=== PATIENT | male | born 1930 | race Caucasian/White ===

== ENCOUNTER 2016-09-16 08:00 | Outpatient (CLI) | payer MEDICARE, OTHER ==
[2016-09-16 13:20] LABS: BASOPHILS % (AUTO) 0.8 %; EOSINOPHILS # (AUTO) 0.1 10^3/uL (0.0-0.7); EOSINOPHILS % (AUTO) 2.1 %; HCT - HEMATOCRIT 31.9 % (42.0-52.0); HGB - HEMOGLOBIN 10.5 g/dL (14.0-18.0); LYMPHOCYTES # (AUTO) 0.6 10^3/uL (1.5-3.5); LYMPHOCYTES % (AUTO) 12.1 %; MEAN CORPUSCULAR HEMOGLOBIN 29.7 pg (27.0-31.0); MEAN CORPUSCULAR HGB CONC 33.1 g/dL (32.0-36.0); MEAN CORPUSCULAR VOLUME 89.7 fL (80.0-94.0); MONOCYTES # (AUTO) 0.6 10^3/uL (0.0-1.0); MONOCYTES % (AUTO) 12.3 %; NEUTROPHILS # (AUTO) 3.6 10^3/uL (1.5-6.6); NEUTROPHILS % (AUTO) 72.7 %; RED BLOOD COUNT 3.55 10^6/uL (4.70-6.10); RED CELL DISTRIBUTION WIDTH 15.5 % (12.0-15.0); UNCORRECTED WHITE BLOOD COUNT 4.9 x10^3/uL; WHITE BLOOD COUNT 4.9 x10^3/uL (4.8-10.8)
== END 2016-09-16 23:59 ==
LOC: LAB.R 08:00
PROVIDERS: ATTEND Internal Medicine
DX: D50.9 Iron deficiency anemia, unspecified (principal)
CPT/HCPCS: 82728; 85025

== ENCOUNTER 2016-10-01 08:59 | Outpatient (CLI) | payer MEDICARE, OTHER | END 2016-10-01 09:00 | disposition home or self-care (01) | DX: D50.9 Iron deficiency anemia, unspecified (principal) ==

== ENCOUNTER 2016-10-22 10:30 | Outpatient (CLI) | payer MEDICARE, OTHER ==
[2016-10-22 15:18] LABS: ALBUMIN/GLOBULIN RATIO 1.6 (1.0-2.2); BILIRUBIN,TOTAL < 0.2 mg/dL (0.2-1.0); BUN - BLOOD UREA NITROGEN 15 mg/dL (6-20); CALCIUM 8.8 mg/dL (8.5-10.3); CARBON DIOXIDE - CO2 26 mmol/L (21-32); CHLORIDE 99 mmol/L (101-111); CREATININE 0.9 mg/dL (0.6-1.2); GFR - MDRD 80 (>89); GLUCOSE 124 mg/dL (70-100); SODIUM 133 mmol/L (135-145); TOTAL PROTEIN 6.2 g/dL (6.7-8.2)
[2016-10-22 15:29] LABS: BASOPHILS % (AUTO) 0.9 %; EOSINOPHILS % (AUTO) 0.9 %; HGB - HEMOGLOBIN 8.5 g/dL (14.0-18.0); LYMPHOCYTES # (AUTO) 0.4 10^3/uL (1.5-3.5); LYMPHOCYTES % (AUTO) 9.8 %; MEAN CORPUSCULAR HEMOGLOBIN 27.8 pg (27.0-31.0); MEAN CORPUSCULAR HGB CONC 31.7 g/dL (32.0-36.0); MEAN CORPUSCULAR VOLUME 87.6 fL (80.0-94.0); MEAN PLATELET VOLUME 7.7 fL (7.4-11.4); MONOCYTES # (AUTO) 0.5 10^3/uL (0.0-1.0); NEUTROPHILS # (AUTO) 2.9 10^3/uL (1.5-6.6); NEUTROPHILS % (AUTO) 76.4 %; NUCLEATED RED BLOOD CELLS AUTO 0.1 /100WBC; RED BLOOD COUNT 3.08 10^6/uL (4.70-6.10); RED CELL DISTRIBUTION WIDTH 16.5 % (12.0-15.0); UNCORRECTED WHITE BLOOD COUNT 3.7 x10^3/uL; WHITE BLOOD COUNT 3.7 x10^3/uL (4.8-10.8)
== END 2016-10-22 10:31 | disposition home or self-care (01) ==
LOC: LAB.R 10:30
PROVIDERS: ATTEND Internal Medicine
DX: D64.9 Anemia, unspecified (principal); R53.83 Other fatigue
CPT/HCPCS: 80053; 82728; 85025

== ENCOUNTER 2016-11-04 09:35 | Outpatient (CLI) | payer MEDICARE, OTHER ==
[2016-11-04 09:54] LABS: BASOPHILS % (AUTO) 0.8 %; HCT - HEMATOCRIT 25.6 % (42.0-52.0); HGB - HEMOGLOBIN 8.1 g/dL (14.0-18.0); LYMPHOCYTES # (AUTO) 0.5 10^3/uL (1.5-3.5); LYMPHOCYTES % (AUTO) 11.1 %; MEAN CORPUSCULAR HEMOGLOBIN 26.2 pg (27.0-31.0); MEAN CORPUSCULAR HGB CONC 31.5 g/dL (32.0-36.0); MEAN CORPUSCULAR VOLUME 83.4 fL (80.0-94.0); MEAN PLATELET VOLUME 6.5 fL (7.4-11.4); MONOCYTES # (AUTO) 0.6 10^3/uL (0.0-1.0); MONOCYTES % (AUTO) 13.4 %; NEUTROPHILS # (AUTO) 3.3 10^3/uL (1.5-6.6); NEUTROPHILS % (AUTO) 73.7 %; RED BLOOD COUNT 3.07 10^6/uL (4.70-6.10); RED CELL DISTRIBUTION WIDTH 18.7 % (12.0-15.0); UNCORRECTED WHITE BLOOD COUNT 4.4 x10^3/uL; WHITE BLOOD COUNT 4.4 x10^3/uL (4.8-10.8)
== END 2016-11-04 09:36 | disposition home or self-care (01) ==
LOC: LAB 09:35
PROVIDERS: ATTEND Internal Medicine
DX: D64.9 Anemia, unspecified (principal)
CPT/HCPCS: 36415; 85025

== ENCOUNTER 2016-11-10 11:09 | Outpatient (CLI) | payer MEDICARE, OTHER ==
[2016-11-10 11:35] LABS: BASOPHILS # (AUTO) 0.1 10^3/uL (0.0-0.1); BASOPHILS % (AUTO) 0.9 %; EOSINOPHILS % (AUTO) 0.7 %; HCT - HEMATOCRIT 26.2 % (42.0-52.0); HGB - HEMOGLOBIN 8.4 g/dL (14.0-18.0); LYMPHOCYTES # (AUTO) 0.5 10^3/uL (1.5-3.5); LYMPHOCYTES % (AUTO) 9.4 %; MEAN CORPUSCULAR HEMOGLOBIN 26.5 pg (27.0-31.0); MEAN CORPUSCULAR VOLUME 82.7 fL (80.0-94.0); MEAN PLATELET VOLUME 6.5 fL (7.4-11.4); MONOCYTES # (AUTO) 0.7 10^3/uL (0.0-1.0); MONOCYTES % (AUTO) 11.4 %; NEUTROPHILS # (AUTO) 4.4 10^3/uL (1.5-6.6); NEUTROPHILS % (AUTO) 77.6 %; NUCLEATED RED BLOOD CELLS AUTO 0.1 /100WBC; RED BLOOD COUNT 3.17 10^6/uL (4.70-6.10); RED CELL DISTRIBUTION WIDTH 17.9 % (12.0-15.0); UNCORRECTED WHITE BLOOD COUNT 5.7 x10^3/uL; WHITE BLOOD COUNT 5.7 x10^3/uL (4.8-10.8)
[2016-11-10 11:49] LABS: PLATELET ESTIMATE, MANUAL NORMAL (130-450,000) (NORMAL); PLATELET MORPHOLOGY NORMAL APPEARANCE (NORMAL)
[2016-11-10 11:50] LABS: ALBUMIN/GLOBULIN RATIO 1.4 (1.0-2.2); BILIRUBIN,TOTAL 0.4 mg/dL (0.2-1.0); CALCIUM 8.7 mg/dL (8.5-10.3); CREATININE 0.8 mg/dL (0.6-1.2); POTASSIUM 4.4 mmol/L (3.5-5.0); TOTAL PROTEIN 6.3 g/dL (6.7-8.2)
--- NOTE | 2016-11-10 21:45 | CT Report ---
CT CHEST WITH CONTRAST: 11/10/2016 CLINICAL INDICATION: Colon cancer. Axial CT images of the chest were obtained with 100 mL Isovue-300 intravenously. In accordance with CT protocol optimization, one or more of the following dose reduction techniques w ere utilized for this exam: automated exposure control, adjustment of mA and/or KV based on patient size, or use of iterative reconstructive technique. No previous CT is available for comparison. The heart and great vessels demonstrate atherosclerotic calcifications. No hilar or mediastinal lymp hadenopathy is present. A small hiatal hernia is noted. The lungs demonstrate minimal dependent ate lectasis. No pulmonary nodule or mass lesion is seen. No effusion or pneumothorax is present. Osse ous structures demonstrate degenerative changes. IMPRESSION: NO EVIDENCE OF THORACIC METASTATIC DISEASE. JOB #: [id number] EXT JOB #:[id number]
--- NOTE | 2016-11-10 21:56 | CT Report ---
CT ABDOMEN AND PELVIS WITH CONTRAST: 11/10/2016 CLINICAL INDICATION: Colon cancer staging. Axial CT images of the abdomen and pelvis were obtained with 100 mL Isovue-300 intravenously as well as oral contrast. In accordance with CT protocol optimization, one or more of the following dose reduction techniques w ere utilized for this exam: automated exposure control, adjustment of mA and/or KV based on patient size, or use of iterative reconstructive technique. No previous CT is available for comparison. Please refer to separate chest CT of the same day. ABDOMEN: There are several hypodense lesions in the liver, measuring from 9 mm to 3.5 cm, compatible with hepatic metastatic disease. The gallbladder is not dilated. The spleen, pancreas, and adrenal glands are unremarkable. The kidneys demonstrate cortical cysts. No bowel dilatation, free gas, or free fluid is present. No abdominal adenopathy is appreciated. PELVIS: The mass in the ascending colon is seen. There are pericolonic lymph nodes present, likely representing marcial metastases. Sigmoid diverticulosis is seen, without CT evidence of diverticulitis . No pelvic free fluid or pelvic side wall adenopathy is appreciated. Osseous structures demonstrate degenerative changes. IMPRESSION: PERICOLONIC LYMPH NODES, LIKELY REPRESENTING MARCIAL METASTASES, WELL MULTIPLE HYPOD ENSE LESIONS IN THE LIVER, MEASURING UP TO 3.5 CM, COMPATIBLE WITH HEPATIC METASTASES. JOB #: [id number] EXT JOB #:[id number]
== END 2016-11-10 11:10 | disposition home or self-care (01) ==
LOC: DI 11:09
PROVIDERS: ATTEND Surgery
DX: C18.9 Malignant neoplasm of colon, unspecified (principal); K76.9 Liver disease, unspecified
CPT/HCPCS: 36415; 71260; 74177; 80053; 82378; 84134; 85025

== ENCOUNTER 2016-11-25 08:56 | Outpatient (CLI) | payer MEDICARE, OTHER ==
[2016-11-25 19:38] LABS: BASOPHILS # (AUTO) 0.1 10^3/uL (0.0-0.1); BASOPHILS % (AUTO) 1.3 %; EOSINOPHILS # (AUTO) 0.1 10^3/uL (0.0-0.7); EOSINOPHILS % (AUTO) 1.5 %; HCT - HEMATOCRIT 35.2 % (42.0-52.0); HGB - HEMOGLOBIN 10.8 g/dL (14.0-18.0); LYMPHOCYTES # (AUTO) 0.6 10^3/uL (1.5-3.5); LYMPHOCYTES % (AUTO) 11.5 %; MEAN CORPUSCULAR HEMOGLOBIN 27.1 pg (27.0-31.0); MEAN CORPUSCULAR HGB CONC 30.8 g/dL (32.0-36.0); MEAN CORPUSCULAR VOLUME 88.2 fL (80.0-94.0); MEAN PLATELET VOLUME 8.2 fL (7.4-11.4); MONOCYTES # (AUTO) 0.6 10^3/uL (0.0-1.0); MONOCYTES % (AUTO) 11.5 %; NEUTROPHILS # (AUTO) 3.8 10^3/uL (1.5-6.6); NEUTROPHILS % (AUTO) 74.2 %; NUCLEATED RED BLOOD CELLS AUTO 0.1 /100WBC; RED BLOOD COUNT 3.99 10^6/uL (4.70-6.10); UNCORRECTED WHITE BLOOD COUNT 5.1 x10^3/uL; WHITE BLOOD COUNT 5.1 x10^3/uL (4.8-10.8)
== END 2016-11-25 08:57 | disposition home or self-care (01) ==
LOC: LAB.R 08:56
PROVIDERS: ATTEND Internal Medicine
DX: C18.9 Malignant neoplasm of colon, unspecified (principal)
CPT/HCPCS: 85025

== ENCOUNTER 2016-12-16 14:20 | Outpatient (CLI) | payer MEDICARE, OTHER ==
--- NOTE | 2016-12-16 22:43 | CONSULTATION NOTE ---
Palliative Care Consultation - Referral Referring Provider: Dr. 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 He presents today with his daughter Naomie to discuss goals of care regarding his ambiguity about proceeding on with treatment. He has a history of recurrent polyps, with his last colonoscopy in 01/2014 with 6 polyps that were tubular adenomas. He was being worked up for anemia which included upper endoscopy and found to have H. Pylori, and was treated in 06/1016. After continued labs showed anemia with low hct 24-25 he did have a colonoscopy 11/06 to find an ulcerated nonobstructive mass in the ascending colon with biopsy showing a moderately differentiated adenocarcinoma. In staging work up on CT scan was shown to have liver lesions between 9 mm and 3.5 cm bilobar. His CEA on 11/10 was 24.2. He was symptomatic from his anemia and received an iron transfusion about 3 weeks ago, and feels much better. He was experiencing severe fatigue, shortness of breath, poor activity tolerance and had exacerbated his anxiety. Patient at baseline is very functional, and was worried about maintaining his independence. He was seen at [facility], [facility] by Dr. Linn, as well as two surgeons. His understanding is that he is not a surgical candidate with metastatic disease, and does have some palliative options with chemotherapy. Medical/Surgical History - Past Medical History Cardiovascular: reports: Hypertension Respiratory: reports: None Neuro: reports: Headache/migraine Endocrine/Autoimmune: reports: None GI: reports: GI bleed (from tumor), Colon polyps. denies: Chronic constipation : reports: None HEENT: reports: Chronic vision loss, Chronic hearing loss Psych: reports: Anxiety Musculoskeletal: reports: Osteoarthritis (long standing anxiety) Derm: reports: None MRSA Hx?: No - Past Surgical History General: reports: Appendectomy, Colonoscopy Ortho: reports: Arthroscopic surgery HEENT: reports: Cataracts - Substance History Use: Uses substance without health or social issues: Alcohol (repoorts drinks moderately) Social History - Living Situation Living arrangement: At home Living Situation: Alone Support System: Daughter Naomie and her family live in [place], she has been very much supportive and involve in his care. She has two high schoolers so is feeling some pull. His son lives in the [place], was just home for a visit. His of lung cancer about 7 1/2 years ago, this very much impacts how he is thinking about his future. Family History - Family History Family History: Mother: (father at 86 with "stomach bleed"), Alzheimer' s Disease (83), Father: , Sister: , Cancer (ovarian) Medications/Allergies - Medications Home Medications: Ambulatory Orders Medication Instructions Recorded Confirmed Ferrous Sulfate 325 mg PO DAILY 11/12/16 12/17/16 Losartan Potassium 100 mg PO DAILY PM 11/12/16 12/17/16 Ascorbic Acid [Vitamin C] 500 mg PO DAILY 12/17/16 12/17/16 LORazepam [Ativan] 0.25 - 0.5 mg PO Q6HR PRN 12/17/16 12/17/16 - Allergies Allergies/Adverse Reactions: Allergies Allergy/AdvReac Type Severity Reaction Status Date / Time No Known Drug Allergies Allergy Verified 11/12/16 10:40 Review of Systems - Constitutional Constitutional: reports: Fatigue. denies: Diaphoresis, Night sweats, Weight loss - Eyes Eyes: reports: Vision loss, Corrective lenses - Ears, Nose & Throat Ears, Nose & Throat: reports: Hearing loss, Hearing aids - Cardiovascular Cariovascular: reports: Decr. exercise tolerance. denies: Chest pain - Respiratory Respiratory: reports: SOB with exertion. denies: Cough, SOB at rest - Gastrointestinal Gastrointestinal: reports: Black stools (due to iron). 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 denies: Recurrent infections - All Other Systems All Other Systems: reports: Reviewed and negative Physical Examination - Vital Signs Pulse Rate: 71 Respiratory Rate: 18 Blood Pressure: 141/85 - Physical Exam General Appearance: positive: No acute distress, Alert Eyes Bilateral: positive: Normal inspection ENT: positive: ENT inspection nml Neck: positive: No JVD, Trachea midline Respiratory: positive: Breath sounds nml Cardiovascular: positive: Regular rate & rhythm Abdomen: positive: Non-tender, Nml bowel sounds, No distention Skin: positive: Pallor Extremities: positive: No pedal edema, Other (limited ROM bilat in shoulders) Neurologic/Psychiatric: positive: Oriented x3, Mood/affect nml Palliative Care - POLST Patient has POLST: Yes POLST Status: DNR, Limited Interventions Pain: Pain unchanged, Location (chronic bilat in shoulders with movement), Severity (0/10 toady) Drowsiness: Mild (1-3) (reports continued fatigue, but is still manageable and not as severe) Nausea: None Anxiety: Mild (1-3) Dyspnea: Mild (1-3) Anorexia: None (does report less in portions) Insomnia: Sleeps well Constipation: No Feelings of wellbeing/Perceived Quality of Life: Comment (perceives current quality of life acceptable; wondering about the future rates 2/10 with 0 best well being and 10 worst) Performance Status: Previous level of function prior to this episode [very active, no limitations]. Current level of functioning [still independent, but pacing self, notes more fatigue]. Palliative Care Performance Status [80%]. - Palliative Care Discussion: Surrogate decision maker- Naomie Durham daughter [phone]. Lengthy discussion regarding goals of care. Patient's understanding has serious illness , understands will progress. Has been offered "comfort care/do nothing", what he understood was a "blanket" or something less toxic but still treatment with goal to extend quantity (capecitabine single agent) and more aggressive regimen , which at this time is pretty much "off the table". He is pending genetic markers testing to see if qualifies for targeted regimen is what they understood. He felt so much better after the iron infusion, and has been so anxious about this decision making process, currently is planning to enjoy the summer and make a definitive decision in the fall. His "lens" is colored by his 's experience with lung cancer and her rapid decline. He very much wants to be independent as long as possible, and wondering if can keep treating the anemia, even if chooses not treatment if that will reach his goals. We did talk about the capecitabine, depending on the regimen, can be well tolerated, also if decide to try, can always not continue if feel impactful. Reviewed though in no treatment, cancer will progress with it's own symptomology. Addressed questions regarding advanced directives, completed the POLST, with DNAR/Limited interventions. Currently would accept transfusion, treatment for reversible conditions, but wanting to weigh benefits and burdens as decisions come up with ultimate goal on comfort and quality of life. Results - Lab Results Lab results reviewed: Yes Impression and Recommendations - Palliative Care Impression: This is a usman 86 year old gentleman with colon cancer and metastatic disease to the liver. His performance status is good, no weight loss, low symptom burden but with concerns related anemia secondary to ulcerated tumor. He is struggling with treatment decisions, values his independence, and has good family support but lives alone. Based on his PPS of 80% with not treatment his survival statistics put him between 6-7.5 months. Recommendations/Counseling Done: 1. Metastatic colon cancer. Patient awaiting results of genetic testing of tumor , may or may not be candidate for further targeted therapy treatment options. Patient at this time awaiting to make definitive decision until fall, default is choosing "do nothing" currently which has allayed his anxiety. Counseling to address multiple questions regarding information about chemotherapy, monitoring of response, quality of life, and choices presented. 2. Anemia. Patient perception benefited greatly from iron transfusion, has not had any follow up labs, is not symptomatic as before other than some fatigue. Reviewed can continue to treat supportively, will follow up with Dr. Desai regarding monitoring as "oncology" support on hold and would prefer to manage closer to home. 3. Anxiety. Counseling for normalizing current feelings, has lorazepam, has used but some sedation. Inst. to use just have tab for escalating distress, reviewed accessing support network/family, and focusing on being "in the moment ", role of palliative care for support. 3. Advanced care planning. Counseling on goals of care, POLST completed, will get copy of DPOA for Naomie for records or redo simpler form. Discussed hospice, EOL options including support at home, SNF, and [facility]. Patient currently focused on maintaining QOL and independence as long as possible. Will let me know final decision regarding treatment so can provide on going support. Time Spent: 90 minutes with greater than 50% of this done in counseling regarding chemotherapy, goals of care and anticipatory guidance.
== END 2016-12-16 14:21 | disposition home or self-care (01) ==
LOC: PC 14:20
PROVIDERS: ATTEND Nurse Practitioner Adult Health
DX: Z51.5 Encounter for palliative care (principal); C18.2 Malignant neoplasm of ascending colon; C78.7 Secondary malignant neoplasm of liver and intrahepatic bile duct; D64.9 Anemia, unspecified; F41.9 Anxiety disorder, unspecified; Z66 Do not resuscitate
CPT/HCPCS: 99205

== ENCOUNTER 2016-12-21 08:44 | Outpatient (CLI) | payer MEDICARE, OTHER ==
[2016-12-21 09:29] LABS: BASOPHILS % (AUTO) 0.8 %; EOSINOPHILS # (AUTO) 0.1 10^3/uL (0.0-0.7); EOSINOPHILS % (AUTO) 1.7 %; HCT - HEMATOCRIT 34.4 % (42.0-52.0); HGB - HEMOGLOBIN 11.4 g/dL (14.0-18.0); LYMPHOCYTES # (AUTO) 0.6 10^3/uL (1.5-3.5); MEAN CORPUSCULAR HEMOGLOBIN 27.9 pg (27.0-31.0); MEAN CORPUSCULAR VOLUME 84.6 fL (80.0-94.0); MONOCYTES # (AUTO) 0.7 10^3/uL (0.0-1.0); MONOCYTES % (AUTO) 11.8 %; NEUTROPHILS # (AUTO) 4.6 10^3/uL (1.5-6.6); NEUTROPHILS % (AUTO) 75.7 %; RED BLOOD COUNT 4.07 10^6/uL (4.70-6.10); RED CELL DISTRIBUTION WIDTH 17.2 % (12.0-15.0); UNCORRECTED WHITE BLOOD COUNT 6.1 x10^3/uL; WHITE BLOOD COUNT 6.1 x10^3/uL (4.8-10.8)
[2016-12-21 10:13] LABS: PLATELET ESTIMATE, MANUAL NORMAL (130-450,000) (NORMAL); PLATELET MORPHOLOGY NORMAL APPEARANCE (NORMAL)
[2016-12-21 10:14] LABS: WBC MORPHOLOGY (MULTIPLE) NORMAL APPEARANCE (NORMAL)
== END 2016-12-21 08:45 | disposition home or self-care (01) ==
LOC: LAB 08:44
PROVIDERS: ATTEND Internal Medicine
DX: C18.9 Malignant neoplasm of colon, unspecified (principal)
CPT/HCPCS: 36415; 82378; 85025

== ENCOUNTER 2017-01-14 14:00 | Outpatient (CLI) | payer MEDICARE, OTHER ==
--- NOTE | 2017-01-14 21:11 | PROVIDER PROGRESS NOTE ---
Palliative Care Follow Up - Referral Referring Provider: Dr. 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 He currently remains and untreated, and then we last met 12/16/16, it made the decision to delay his final choice regarding treatment or no treatment until later in the fall. I did receive a call last week, that he had made the decision for no pursue the treatment, and is feeling much relieved with this. His current goal is to focus on quality of life, aware that his disease will progress, but is at peace with his current decision. He is in his daughter set up a second appointment, to further discuss goals of care, and the role of hospice in the future. We see his daughter, is quite supportive of his decision , and both feel it is premature to enlist the help of the hospice team. He is somewhat of an introvert, he is currently functional, independent in his ADLs, and his daughter is visiting him twice a week for ongoing support. His symptom burden is minimal, he does have some fatigue with activities, he has "an awareness" of right-sided fullness but not pain, and reports it is always "on his mind". It is hematocrit on 12/21 remains stable at 34.4, his CEA had increased to 106 and 24.2. He is continuing on oral iron, his bowel movements are normal, has not noticed any timoteo bleeding. He is focusing his energy on his woodworking, relationships, and getting his affairs in order. Social History - Living Situation Living arrangement: At home Living Situation: Alone Support System: Daughter comes to visit twice a week; patient sometimes spends weekend there; Son from [facility] coming for visit next week as well as his brother; many friends who check on him regularly Medications/Allergies - Medications Home Medications: Ambulatory Orders Medication Instructions Recorded Confirmed Ferrous Sulfate 325 mg PO DAILY 11/12/16 12/17/16 Losartan Potassium 100 mg PO DAILY PM 11/12/16 12/17/16 Ascorbic Acid [Vitamin C] 500 mg PO DAILY 12/17/16 12/17/16 LORazepam [Ativan] 0.25 - 0.5 mg PO Q6HR PRN 12/17/16 12/17/16 - Allergies Allergies/Adverse Reactions: Allergies Allergy/AdvReac Type Severity Reaction Status Date / Time No Known Drug Allergies Allergy Verified 11/12/16 10:40 Review of Systems - Constitutional Constitutional: reports: Fatigue (improved but still needs to pace self) - Eyes Eyes: denies: Irritation, Blurred vision, Vision loss - Ears, Nose & Throat Ears, Nose & Throat: reports: Hearing loss, Hearing aids - Cardiovascular Cariovascular: reports: Exertional dyspnea, Decr. exercise tolerance. denies: Chest pain, Lightheadedness - Respiratory Respiratory: reports: SOB with exertion. denies: Cough, Wheezing, SOB at rest - Gastrointestinal Gastrointestinal: reports: Black stools (from iron), Other (twinge of change; an awareness of right upper quadrant discomfort over "liver"). denies: Constipation, Nausea, Reflux/heartburn, Bloating - Genitourinary Genitourinary: denies: Incontinence - Musculoskeletal Musculoskeletal: reports: Limited range of motion (bilateral shoulder) - Integumentary Integumentary: reports: Dryness. denies: Pruritis - Neurological Neurological: reports: General weakness (perceives as mild compared to previous experience with anemia). denies: Memory problems - Psychiatric Psychiatric: reports: Anxiety (improved with decision to not pursue treatment). denies: Depression - Endocrine Endocrine: reports: Other (no DM/Hypothyroidism) - Hematologic/Lymphatic Hematologic/Lymphatic: reports: Anemia (treated currently with oral iron; last count) - All Other Systems All Other Systems: reports: Reviewed and negative Physical Examination - Vital Signs Temperature: 36.4 C Pulse Rate: 92 Respiratory Rate: 18 Blood Pressure: 149/83 - Physical Exam General Appearance: positive: No acute distress Eyes Bilateral: positive: Normal inspection ENT: positive: No signs of dehydration Neck: positive: Trachea midline Respiratory: positive: Breath sounds nml Cardiovascular: positive: Regular rate & rhythm Abdomen: positive: Nml bowel sounds. negative: Tenderness, Guarding, Hepatomegaly Skin: positive: Pallor Extremities: positive: Nml appearance, No pedal edema, Other (limited ROM in shoulder joints; has exercises doing) Neurologic/Psychiatric: positive: Oriented x3, Mood/affect nml Palliative Care - POLST Patient has POLST: Yes POLST Status: DNR, Limited Interventions Pain: Pain unchanged, Comment ("awareness" occasional "ping" right upper quadrent; no tenderness with deep palpaltion for liver border) Drowsiness: None Nausea: None Anxiety: Mild (1-3) (reports some mild, but feeling much better since made the decision) Dyspnea: None Anorexia: None (weigt 162.9; reports maybe less portions but no change in appetite) Insomnia: Sleeps well Constipation: No Feelings of wellbeing/Perceived Quality of Life: No change Performance Status: Patient reports needing to pace activities some, but no change in his independence her ability to address ADLs. He has had no falls, and is able to ambulate independently. Does not feel at risk are interested in [facility] at this point in time. - Palliative Care Discussion: Surrogate decision maker Naomie Durham, daughter [phone]. Patient reports current goals are to just focus on living his life as normal as possible. He is trying to get his affairs in order, address her arrangements regarding finances, and visiting with family. Currently he would still accept, blood transfusions, things that might improve his quality of life, but nothing to prolong his suffering. Discussion was had both with patient and daughter, separately regarding hospice criteria and weigh the benefits and burdens of waiting restarting citizen later. Patient with low symptom burden, that functional status, agreed to follow along with palliative care until more obvious transition point revealed. Both his daughter and patient, acknowledge his underlying anxiety, and so he is aware of his eminent decline, he feels he would do better with normalizing his current routine. He does recognize though at some point it would be helpful to meet the team sooner than in crisis. Results - Lab Results Lab results reviewed: Yes Impression and Recommendations - Palliative Care Impression: This is a usman 86-year-old gentleman with colon cancer with metastatic disease to the liver. He presents with low symptom burden, good performance status, no ongoing weight loss, and his anemia is currently stable. He has chosen to not pursue any further palliative treatment, and feels much relieved by this decision. He does acknowledge the seriousness of his illness and is hoping for an extended period of time with quality of life. He does not currently feel he is ready for hospice, but is willing to access in the transition point and criteria become more clear. He will continue with palliative care intermittently for support, and assistance with transition points. Recommendations/Counseling Done: 1. Metastatic colon cancer with liver metastases. Counseling regarding things he may do to support himself moving forward, recommended initiating vitamin D., maintaining his functional status with walking program, and focus on maintaining weight and healthy nutrition. Reviewed signs and symptoms of acute anemia, dizziness, shortness of breath, and decreased activity tolerance. 2. Advanced care planning. Counseling regarding transition and hospice benefit, patient feels his premature and I am somewhat in agreement with this. Though given his choice of no treatment, metastatic liver disease, he would meet hospice criteria. POLST has been completed, goals of care are focusing on quality of life, has adequate social support to meet his needs currently, will continue to be available for any further palliative care needs. Daughter, patient, and myself are in agreement with plan. He will followup with his PCP in the next few weeks, regarding repeat labs, he will not need a CEA as he will not be receiving treatment. Time Spent: 30 minutes with greater than 50% of this done in counseling regarding symptom management, hospice benefit, goals of care, and anticipatory guidance.
== END 2017-01-14 14:01 | disposition home or self-care (01) ==
LOC: PC 14:00
PROVIDERS: ATTEND Nurse Practitioner Adult Health
DX: Z51.5 Encounter for palliative care (principal); R53.83 Other fatigue; H91.90 Unspecified hearing loss, unspecified ear; R06.00 Dyspnea, unspecified; C18.9 Malignant neoplasm of colon, unspecified; C78.7 Secondary malignant neoplasm of liver and intrahepatic bile duct; D64.9 Anemia, unspecified
CPT/HCPCS: 99214

== ENCOUNTER 2017-02-03 10:16 | Outpatient (CLI) | payer MEDICARE, OTHER ==
[2017-02-03 11:04] LABS: BASOPHILS % (AUTO) 0.6 %; EOSINOPHILS % (AUTO) 0.7 %; HCT - HEMATOCRIT 33.5 % (42.0-52.0); HGB - HEMOGLOBIN 10.9 g/dL (14.0-18.0); LYMPHOCYTES # (AUTO) 0.4 10^3/uL (1.5-3.5); LYMPHOCYTES % (AUTO) 7.6 %; MEAN CORPUSCULAR HEMOGLOBIN 26.6 pg (27.0-31.0); MEAN CORPUSCULAR HGB CONC 32.6 g/dL (32.0-36.0); MEAN CORPUSCULAR VOLUME 81.6 fL (80.0-94.0); MEAN PLATELET VOLUME 6.4 fL (7.4-11.4); MONOCYTES # (AUTO) 0.7 10^3/uL (0.0-1.0); MONOCYTES % (AUTO) 11.7 %; NEUTROPHILS # (AUTO) 4.6 10^3/uL (1.5-6.6); NEUTROPHILS % (AUTO) 79.4 %; RED BLOOD COUNT 4.11 10^6/uL (4.70-6.10); RED CELL DISTRIBUTION WIDTH 14.6 % (12.0-15.0); UNCORRECTED WHITE BLOOD COUNT 5.8 x10^3/uL; WHITE BLOOD COUNT 5.8 x10^3/uL (4.8-10.8)
== END 2017-02-03 10:17 | disposition home or self-care (01) ==
LOC: LAB 10:16
PROVIDERS: ATTEND Internal Medicine
DX: C18.9 Malignant neoplasm of colon, unspecified (principal)
CPT/HCPCS: 36415; 82378; 82728; 85025

== ENCOUNTER 2017-02-27 08:45 | Outpatient (CLI) | payer MEDICARE, OTHER ==
[2017-02-27 09:11] LABS: BASOPHILS # (AUTO) 0.1 10^3/uL (0.0-0.1); BASOPHILS % (AUTO) 0.7 %; EOSINOPHILS # (AUTO) 0.1 10^3/uL (0.0-0.7); EOSINOPHILS % (AUTO) 0.9 %; HCT - HEMATOCRIT 32.2 % (42.0-52.0); HGB - HEMOGLOBIN 10.1 g/dL (14.0-18.0); LYMPHOCYTES # (AUTO) 0.4 10^3/uL (1.5-3.5); LYMPHOCYTES % (AUTO) 5.8 %; MEAN CORPUSCULAR HEMOGLOBIN 25.2 pg (27.0-31.0); MEAN CORPUSCULAR HGB CONC 31.5 g/dL (32.0-36.0); MEAN CORPUSCULAR VOLUME 80.1 fL (80.0-94.0); MEAN PLATELET VOLUME 6.9 fL (7.4-11.4); MONOCYTES # (AUTO) 0.9 10^3/uL (0.0-1.0); MONOCYTES % (AUTO) 12.1 %; NEUTROPHILS % (AUTO) 80.5 %; RED BLOOD COUNT 4.01 10^6/uL (4.70-6.10); RED CELL DISTRIBUTION WIDTH 14.4 % (12.0-15.0); UNCORRECTED WHITE BLOOD COUNT 7.5 x10^3/uL; WHITE BLOOD COUNT 7.5 x10^3/uL (4.8-10.8)
== END 2017-02-27 08:46 | disposition home or self-care (01) ==
LOC: LAB 08:45
PROVIDERS: ATTEND Internal Medicine
DX: C18.9 Malignant neoplasm of colon, unspecified (principal)
CPT/HCPCS: 36415; 82728; 85025

== ENCOUNTER 2017-03-30 07:23 | Outpatient (CLI) | payer MEDICARE, OTHER ==
[2017-03-30 07:51] LABS: BASOPHILS # (AUTO) 0.1 10^3/uL (0.0-0.1); BASOPHILS % (AUTO) 0.9 %; EOSINOPHILS # (AUTO) 0.1 10^3/uL (0.0-0.7); HCT - HEMATOCRIT 28.1 % (42.0-52.0); LYMPHOCYTES # (AUTO) 0.5 10^3/uL (1.5-3.5); LYMPHOCYTES % (AUTO) 6.7 %; MEAN CORPUSCULAR HEMOGLOBIN 24.2 pg (27.0-31.0); MEAN CORPUSCULAR HGB CONC 32.1 g/dL (32.0-36.0); MEAN CORPUSCULAR VOLUME 75.3 fL (80.0-94.0); MEAN PLATELET VOLUME 6.7 fL (7.4-11.4); MONOCYTES # (AUTO) 0.9 10^3/uL (0.0-1.0); MONOCYTES % (AUTO) 11.3 %; NEUTROPHILS # (AUTO) 6.1 10^3/uL (1.5-6.6); NEUTROPHILS % (AUTO) 80.1 %; RED BLOOD COUNT 3.73 10^6/uL (4.70-6.10); UNCORRECTED WHITE BLOOD COUNT 7.6 x10^3/uL; WHITE BLOOD COUNT 7.6 x10^3/uL (4.8-10.8)
== END 2017-03-30 07:24 | disposition home or self-care (01) ==
LOC: LAB 07:23
PROVIDERS: ATTEND Internal Medicine
DX: C18.9 Malignant neoplasm of colon, unspecified (principal)
CPT/HCPCS: 36415; 82728; 85025

== ENCOUNTER 2017-04-01 10:51 | Outpatient (CLI) | payer MEDICARE, OTHER | END 2017-04-01 10:52 | disposition home or self-care (01) | LOC: PC 10:51 | PROVIDERS: ATTEND Nurse Practitioner Adult Health | DX: Z51.5 Encounter for palliative care (principal); K59.00 Constipation, unspecified; R05 Cough; K21.9 Gastro-esophageal reflux disease without esophagitis; D50.0 Iron deficiency anemia secondary to blood loss (chronic); F41.9 Anxiety disorder, unspecified; C18.2 Malignant neoplasm of ascending colon; C78.7 Secondary malignant neoplasm of liver and intrahepatic bile duct; Z66 Do not resuscitate | CPT/HCPCS: 99215 ==